=== PATIENT | female | born 1960 | race Asian ===

== ENCOUNTER 2018-12-01 18:48 | Emergency (ER) | payer OTHER ==
[~2018-12-01] VITALS: Ht 152.4 cm; Wt 54.5 kg
[~2018-12-01 18:48] MED LIST: ATOR80TA PO; ENAL2.5T PO; MAGN400T26 PO; METO-282 PO; PANT40TA3 PO; RIVA10TA2 PO; SIMV20TA3 PO
[2018-12-01 19:12] LABS: BASOPHILS # (AUTO) 0.02 x10^3/uL (0-0.1); BASOPHILS % (AUTO) 0 % (0-1); EOSINOPHILS # (AUTO) 0.44 x10^3/uL (0-0.4); EOSINOPHILS % (AUTO) 6 % (1-7); LYMPHOCYTES # (AUTO) 1.97 x10^3/uL (1-3.4); LYMPHOCYTES % (AUTO) 26 % (22-44); MD NO; MEAN CORPUSCULAR HEMOGLOBIN 28.2 pg (27.0-34.8); MEAN CORPUSCULAR HGB CONC 33.5 g/dL (32.4-35.8); MEAN CORPUSCULAR VOLUME 84.2 fL (80-100); MEAN PLATELET VOLUME 7.6 fL (7.4-10.4); MONOCYTES # (AUTO) 0.91 x10^3/uL (0.2-0.8); MONOCYTES % (AUTO) 12 % (2-9); NEUTROPHILS # (AUTO) 4.15 x10^3/uL (1.8-6.8); NEUTROPHILS % (AUTO) 55 % (42-75); PLATELET COUNT 326 x10^3/uL (130-400); RED BLOOD COUNT 4.76 x10^6/uL (3.82-5.3); RED CELL DISTRIBUTION WIDTH 14.2 % (9.6-15.2)
[2018-12-01 19:20] LABS: ALBUMIN 3.6 g/dL (3.4-5.0); ANION GAP 9 mmol/L (5-15); CALCIUM 9.5 mg/dL (8.5-10.1); CHLORIDE 110 mmol/L (98-107); CREATININE 1.46 mg/dL (0.55-1.02)
[2018-12-01] MEDS ORDERED: ROSU40TA PO (19:26)
[2018-12-01] MEDS ORDERED: RIVA20TA PO (19:26)
[2018-12-01] MEDS ORDERED: CARV3.122 PO (19:26)
[2018-12-01] MEDS ORDERED: SPIR25TA5 PO (19:26)
[2018-12-01] MEDS ORDERED: LOSA100T14 PO (19:26)
--- NOTE | 2018-12-01 19:27 | NUR ---
DIARRHEA WITH ABDOMINAL CRAMPING SINCE YESTERDAY
[2018-12-01 19:46] LABS: ALANINE AMINOTRANSFERASE 28 U/L (12-78); ALBUMIN 3.6 g/dL (3.4-5.0); BILIRUBIN, DIRECT 0.2 mg/dL (0.1-0.2)
[2018-12-01 19:48] LABS: ALKALINE PHOSPHATASE 91 U/L (45-117); BILIRUBIN,INDIRECT 0.1 mg/dL (0.0-2.0); BILIRUBIN,TOTAL 0.3 mg/dL (0.2-1.0); TOTAL PROTEIN 8.1 g/dL (6.4-8.2); TROPONIN I < 0.015 ng/mL (0.000-0.045)
[2018-12-01 20:17] VITALS: BP 105/58
--- NOTE | 2018-12-01 20:18 | NUR ---
RESTING QUIETLY. AT SIDE. NO DISTRESS
== END 2018-12-01 20:42 | disposition home or self-care (01) ==
LOC: ED 20:10
DX: R19.7 Diarrhea, unspecified (principal); R53.1 Weakness; R42 Dizziness and giddiness; I10 Essential (primary) hypertension; E78.5 Hyperlipidemia, unspecified
CPT/HCPCS: 36415; 80048; 80076; 82040; 83690; 84484; 85025; 93005; 99284